=== PATIENT | female | born 1975 | race Caucasian/White ===

== ENCOUNTER 2020-06-13 06:50 | Inpatient (IN) ==
[2020-06-13 07:49] LABS: Basophils % 0.2 %; Hematocrit 44.9 % (35.3-44.9); Hemoglobin 15.2 g/dL (11.5-15.4); Immature Granulocytes % 0.5 % (0-4); Lymphocytes # 1.7 K/mcL (0.6-4.6); Lymphocytes % 20.7 %; Mean Corpuscular HGB Conc 33.9 g/dL (31.6-35.5); Mean Corpuscular Hemoglobin 29.8 pg (28.0-33.3); Mean Platelet Volume 9.8 fL (9.4-12.4); Monocytes # 0.7 K/mcL (0.0-1.3); Monocytes % 8.8 %; Neutrophils # 5.6 K/mcL (1.6-8.9); Platelet Count 230 K/mcL (140-400); Segmented Neutrophils % 69.8 %; White Blood Count 8.1 K/mcL (4.3-11.1)
[2020-06-13 07:52] LABS: Alanine Aminotransferase 94 Units/L (7-52); Albumin 3.9 g/dL (3.5-5.7); Albumin/Globulin Ratio 1.1 (1.1-2.2); Alkaline Phosphatase 59 Units/L (34-104); Aspartate Amino Transferase 69 Units/L (13-39); BUN/Creatinine Ratio 21 (6-26); Bilirubin,Direct 0.1 mg/dL (0.0-0.2); Bilirubin,Indirect 0.4 mg/dL (0.0-1.0); Bilirubin,Total 0.5 mg/dL (0.3-1.0); Blood Urea Nitrogen 20 mg/dL (6-20); Calcium 8.7 mg/dL (8.6-10.3); Carbon Dioxide 25 mEq/L (23-29); Chloride 103 mEq/L (98-107); Globulin 3.5 g/dL (2.4-3.5); Glucose 98 mg/dL (70-105); Osmolality,Calculated 289 (280-300); Potassium 3.5 mEq/L (3.5-5.1); Sodium 138 mEq/L (136-145); Total Protein 7.4 g/dL (6.4-8.9); eGFR For African Americans > 60 (> 60); eGFR For Non-African Americans > 60 (> 60)
[2020-06-13 07:53] LABS: Prothrombin Time 11.4 Seconds (9.4-12.1)
[2020-06-13 07:54] LABS: Troponin I < 0.03 ng/mL (< 0.04)
[2020-06-13] MEDS ORDERED: Isovue-370 500 ML BOTTLE IVP ONE (08:11)
[2020-06-13] MEDS ORDERED: Acetaminophen 325 MG TABLET PO PRN (10:24)
[2020-06-13] MEDS ORDERED: Ondansetron 4 MG/2 ML VIAL IVP PRN (10:24)
[2020-06-13 11:23] LABS: Adenovirus Not Detected (Not Detect); Bordetella Pertussis Not Detected (Not Detect); Chlamydophila pneumoniae Not Detected (Not Detect); Coronavirus 229E Not Detected (Not Detect); Coronavirus HKU1 Not Detected (Not Detect); Coronavirus NL63 Not Detected (Not Detect); Coronavirus OC43 Not Detected (Not Detect); Human Metapneumovirus Not Detected (Not Detect); Human Rhinovirus/Enterovirus Not Detected (Not Detect); Influenza A Subtype 2009 H1 Not Detected (Not Detect); Influenza B Not Detected (Not Detect); Mycoplasma pneumoniae Not Detected (Not Detect); Parainfluenza Virus 1 Not Detected (Not Detect); Parainfluenza Virus 2 Not Detected (Not Detect); Parainfluenza Virus 3 Not Detected (Not Detect); Parainfluenza Virus 4 Not Detected (Not Detect); Respiratory Syncytial Virus Not Detected (Not Detect)
[2020-06-13 11:24] LABS: SARS-CoV-2 DETECTED (Not Detect)
[2020-06-13] MEDS: Dexamethasone Sodium Phos/PF 10 MG/ML VIAL IVP SCH (13:32)
[2020-06-13] MEDS: Gabapentin 400 MG CAPSULE PO SCH ×3 (13:32→20:41)
[2020-06-13] MEDS: *HR* LORazepam 0.5 MG TABLET PO PRN (21:22)
[2020-06-13] MEDS ORDERED: 0.9 % Sodium Chloride 250 ML ONE (21:48)
[2020-06-14 05:18] LABS: Hematocrit 42.6 % (35.3-44.9); Mean Corpuscular HGB Conc 32.9 g/dL (31.6-35.5); Mean Corpuscular Hemoglobin 29.1 pg (28.0-33.3); Mean Corpuscular Volume 88.6 fL (83.0-100.0); Mean Platelet Volume 9.7 fL (9.4-12.4); Platelet Count 238 K/mcL (140-400); Red Blood Count 4.81 M/mcL (3.82-4.97); White Blood Count 7.4 K/mcL (4.3-11.1)
[2020-06-14 05:32] LABS: C-Reactive Protein 19 mg/L (Less than 10); Lactate Dehydrogenase 226 Units/L (140-271)
[2020-06-14 05:34] LABS: BUN/Creatinine Ratio 23 (6-26); Blood Urea Nitrogen 19 mg/dL (6-20); Calcium 8.7 mg/dL (8.6-10.3); Carbon Dioxide 25 mEq/L (23-29); Chloride 102 mEq/L (98-107); Glucose 108 mg/dL (70-105); Magnesium 2.2 mg/dL (1.6-2.6); Osmolality,Calculated 285 (280-300); Phosphorous 3.3 mg/dL (2.7-4.5); Potassium 3.8 mEq/L (3.5-5.1); Sodium 136 mEq/L (136-145); eGFR For African Americans > 60 (> 60); eGFR For Non-African Americans > 60 (> 60)
[2020-06-14 05:50] LABS: Ferritin 443 ng/mL (10-120)
[2020-06-14] MEDS ORDERED: *HR* Enoxaparin 40 MG/0.4 ML SYRINGE SQ SCH (06:00)
[2020-06-14] MEDS ORDERED: estradioL 0.5 MG TABLET PO SCH (09:00)
[2020-06-14] MEDS: Dexamethasone Sodium Phos/PF 10 MG/ML VIAL IVP SCH (09:06)
[2020-06-14] MEDS: Gabapentin 400 MG CAPSULE PO SCH ×2 (09:17→15:02)
[2020-06-14] MEDS: *HR* LORazepam 0.5 MG TABLET PO PRN (09:33)
[2020-06-14 16:34] VITALS: BP 123/83
== END 2020-06-14 17:12 | disposition home or self-care (01) | DRG 177 ==
LOC: 2NENU 06:50 → EMEROOARM 06:50 → 2NENU 11:32 → SUATTDRO 14:11
PROVIDERS: ADMIT Internal Medicine; ATTEND Internal Medicine